=== PATIENT | male | born 1945 | race Caucasian/White ===

== ENCOUNTER 2023-08-03 07:57 | Emergency (ER) | payer MEDICARE, SELFPAY ==
[2023-08-03 07:58] VITALS: BP 134/82; PULSE 78; RESP 18; TEMP 36.3; O2SAT 99; BMI 24.9
--- NOTE | 2023-08-03 08:06 | ED.RN ---
PT IN ED SPEECH IS CLEAR PT ABLE TO RECALL EVENTS, RAN ON TRACK FELL, SOMEONE WAS THERE AND ASKED IF HEAS OKAY PT STATES HE GOT UP AND FINISHED HIS MILE AND DROVE HOME, THIS IS WHERE EVIDENCED HIM ASKING BIZARRE QUESTIONS.
--- NOTE | 2023-08-03 08:11 | EDS_ITS ---
HPI HPI - Fall History of Present Illness Chief Complaint: Fall Informant: patient, spouse/S.O. and family Narrative Narrative: Less than 1 hour prior to evaluation, patient was jogging on the [employer] track, and apparently had a fall and hit his head. This was not witnessed by family members, but when he came home he was confused. The patient states he remembers falling but he is not sure exactly how or what happened. He does remember going for a jog. He remembers someone coming over to see if he was okay and he said he was and then they went away and he went home. He does not remember much else. Family states initially when he came home he really was not talking and then he was saying gibberish but now he is talking better just still somewhat confused and the patient agrees that he is somewhat confused and cannot remember things. He denies pain anywhere or headache or nausea. He takes no antiplatelet or anticoagulant medications. [facility] Medical History History of [place] (myocardial infarction) Hyperlipidemia Home Medications pravastatin 40 mg tablet 40 mg PO DAILY 08/03/23 [History Last Taken Unknown] Social History Smoking Status: Never smoker ROS ROS ED Constitutional Constitutional ED: Denies chills or fever(s) Eyes Eyes: Denies change in vision or diplopia ENT ENT ED: Denies ear pain, epistaxis, facial pain or rhinorrhea Cardiovascular Cardiovascular: Denies chest pain or palpitations Respiratory/Chest Respiratory/Chest: Denies cough or dyspnea Gastrointestinal Gastrointestinal: Denies abdominal pain, diarrhea, melena, nausea or vomiting Genitourinary Genitourinary ED: Denies dysuria or hematuria Musculoskeletal Musculoskeletal: Denies back pain, extremity pain or neck pain Integumentary Reports Abrasions; Denies abscess, laceration or rash Neurologic Neurologic: Reports confusion; Denies headache(s), paresthesias or weakness EXAM Physical Exam Const Vital Signs: 08/03/23 07:58 08/03/23 08:05 08/03/23 08:58 Temperature 97.4 F L Temperature Source Oral Pulse Rate 78 73 Respiratory Rate 18 18 Respiratory Effort Normal Respiratory Depth Normal Respiratory Pattern Normal Blood Pressure 134/82 H 144/74 H Blood Pressure Mean 99 97 Pulse Ox 99 96 Oxygen Delivery Method Room Air Room Air Room Air 08/03/23 10:00 Temperature Temperature Source Pulse Rate 64 Respiratory Rate 16 Respiratory Effort Respiratory Depth Respiratory Pattern Blood Pressure 144/82 H Blood Pressure Mean 102 Pulse Ox 99 Oxygen Delivery Method Positive well nourished and well developed General Appearance ED: well developed and NAD HEENT Reports TM's clear and nasal mucous membranes and turbinates normal HEENT Narrative: Abrasion on the right cheek that looks acute but no bony facial tenderness. Also small contusion right upper lip, including a mucosal abrasion but no laceration. Mildly tender. No dental injury. Face and Sinus: Negative for facial tenderness Tympanic Membrane ED: Yes TM's clear Eyes PERRL and EOMs intact bilaterally Visual Acuity: other Other Details: no entrapment or pain with extraocular movements Neck full ROM and supple General: Negative for tenderness Chest Wall inspection of chest normal and palpation of chest normal Chest: symmetrical chest wall rise; Negative for crepitus or tenderness Resp normal respiratory effort and clear to auscultation bilaterally Percussion: other equal BS bilat Cardio no murmurs Rate: regular rate Rhythm: regular rhythm GI normal to inspection, nondistended, normoactive bowel sounds, soft to palpation and non-tender Back/Spine normal ROM Cervical Spine: Negative for cervical spine tenderness Thoracic Spine / Upper Back: Negative for thoracic spinal tenderness Lumbar Spine / Lower Back: Negative for lumbar spinal tenderness Extremity normal to inspection and full ROM General Extremety ED: Negative for tenderness Neuro oriented x3, CN's II-XII intact bilaterally, moves all extremities, no focal motor deficits and no sensory deficits noted Neuro Narrative: Speaking normally no aphasia. Amnestic to some events but does remember falling and cannot describe some things. [place] Coma Scale: document GCS findings Spontaneous Obeys Commands Confused 14 Sensorium / Orientation: awake and alert Psych mental status grossly normal and thought process normal Skin no wounds Lesions: no lesions Rashes: no rashes MDM MDM MDM Narrative Medical decision making narrative: CT of the head was obtained in order to rule out intracranial injury, I reviewed the images and report which I agree with, negative for anything acute. With observation, the patient's mentation has been clearing according to family and doing better, remembering that while he was running he ran into a elsie in the middle of the track causing him to fall. We had an extended discussion about admission for observation versus discharge home with family's care and observation there. They are comfortable taking him home. We discussed reasons to return such as dangerous behaviors related to his confusion, such as wandering out into the street, etc. He is doing better not worse right now. Th ey are comfortable taking him home. He has developed no other symptoms suffer some mild neck soreness, he has no midline tenderness and he has full range of motion consistent with a minor strain. My recommendation is no activities outside or sports until his concussion symptoms have resolved. If they go on more than a week he should follow-up. Supportive care advised her comfortable with that plan. Radiography Diagnostic Testing: Clinical Impression(s) from Imaging Studies Brain CT 08/03/23 08:11 IMPRESSION: Chronic involutional changes of the brain. No acute hemorrhage Electronically Signed: Ashok Saez MD at 9:02 EDT , Discharge Plan Triage Chief Complaint: Fall ED Provider: Isaac Butler Dx/Rx/DC Orders Clinical Impression: Closed head injury with concussion Instructions: Concussion Dc Prescriptions: No Action pravastatin 40 mg tablet 40 mg PO DAILY Primary Care Provider: Geo White Referrals: Geo White DO [Primary Care Provider] - 1 Week if not improving Activity Restrictions/Additional Instructions: Tylenol okay as needed for any pains. An occasional ibuprofen also is okay. Disposition Disposition: Home, Self Care
--- NOTE | 2023-08-03 08:11 | CT_ITS ---
STUDY: CT BRAIN WITHOUT CONTRAST REASON FOR EXAM: Male, 78 years old. Trauma, confused RADIATION DOSAGE (If Supplied By Facility): CTDIvol = ( 44.99 ) mGy, DLP = ( 863.60 ) mGycm TECHNIQUE: Transaxial CT imaging of the brain was performed without administration of intravenous contrast material. Individualized dose optimization techniques were used for this CT. COMPARISON: No relevant priors. FINDINGS: Normal soft tissue structures. Normal calvarium. There is mild cerebral atrophy with widening of the extra-axial spaces and ventricular dilatation. There are areas of decreased attenuation within the white matter tracts of the supratentorial brain, consistent with microvascular disease changes. Normal basal ganglia and thalami. Normal brainstem. There is mild cerebellar atrophy. There is no intracranial hemorrhage. There are no findings of an acute ischemic infarction. Bilateral maxillary sinusitis, left greater than right CT/Brain/Head without Contrast IMPRESSION: Chronic involutional changes of the brain. No acute hemorrhage Electronically Signed: Ashok Saez MD at 9:02 EDT ,
[2023-08-03 08:58] VITALS: BP 144/74; PULSE 73; RESP 18; O2SAT 96
[2023-08-03 10:00] VITALS: BP 144/82; PULSE 64; RESP 16; O2SAT 99
--- NOTE | 2023-08-03 10:25 | RAD_ITS ---
STUDY: X-RAY - RIGHT HAND, ATTENTION FOURTH FINGER REASON FOR EXAM: Male, 78 years old. Pain and swelling TECHNIQUE: 3 view(s) of the finger were obtained. COMPARISON: None. FINDINGS: On the lateral and oblique view, there is evidence to suspect an avulsion fracture in the proximal pole are corner of the middle phalanx of the fourth digit with associated soft tissue swelling. 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 No other demonstrated fracture. RAD/Finger(s) Min 2 Views IMPRESSION: Acute avulsion fracture in the proximal volar aspect of the middle phalanx with soft tissue swelling Electronically Signed: Ashok Saez MD at 10:39 EDT ,
[2023-08-03 10:47] VITALS: BP 144/76; PULSE 75; RESP 18; TEMP 36.6; O2SAT 97
== END 2023-08-03 10:48 | disposition home or self-care (01) ==
PROVIDERS: Emergency Provider Emergency Medicine; PCP Student in an Organized Health Care Education/Training Program; Visit Provider Emergency Medicine
DX: S06.0X0A Concussion without loss of consciousness, initial encounter (principal); I25.2 Old myocardial infarction; W19.XXXA Unspecified fall, initial encounter
CPT/HCPCS: 70450; 73140; 99282